=== PATIENT | female | born 1930 | race Caucasian/White ===

== ENCOUNTER → 2017-07-22 | Outpatient (CLI) | payer MEDICARE, OTHER ==
[~2017-07-22] MED LIST: AMLO5TAB2 PO; ASPI-983 PO; CALC1TAB29 PO; CEFD300C3 PO; FA/M1TAB29 PO; GFCD10B PO; METO-370 PO; OSEL30CA PO; SIMV40TA4 PO
--- NOTE | 2017-07-22 09:47 | Diagnostic Imaging Report ---
INDICATION: Followup pneumonia COMPARISON: 06/25/2017 FINDINGS: Two views of the chest were obtained. Heart size is normal. The pulmonary vessels appear unremarkable. There is no pneumothorax, mediastinal widening or pleural fluid. There are chronic findings of COPD. The lungs are now clear. Findings seen at the right lung base on the prior study have resolved. No new abnormality is seen. There is mild osteopenia of the osseous structures. IMPRESSION: 1. Interval resolution of the previously seen findings at the right lung base 2. Chronic findings of COPD are stable 3. No new or acute abnormality is seen compared to the prior exam. Dictated by: Dictated on workstation # [id number]
== END ==
LOC: RAD 09:05
PROVIDERS: ATTEND Internal Medicine
DX: J18.9 Pneumonia, unspecified organism (principal); J44.9 Chronic obstructive pulmonary disease, unspecified
CPT/HCPCS: 71046

== ENCOUNTER → 2017-09-10 | Outpatient (CLI) | payer MEDICARE, OTHER | LOC: CARD 12:47 | PROVIDERS: ATTEND Nurse Practitioner Family | DX: I10 Essential (primary) hypertension (principal); I47.1 Supraventricular tachycardia; I08.3 Combined rheumatic disorders of mitral, aortic and tricuspid valves | CPT/HCPCS: 93306 ==

== ENCOUNTER 2018-05-14 16:07 | Emergency (ER) | payer MEDICARE, OTHER ==
[~2018-05-14] VITALS: Ht 152.4 cm; Wt 53.1 kg
[~2018-05-14 16:07] MED LIST changes: -AMLO5TAB2 PO; +AMLO5TAB9 PO
[2018-05-14] MEDS ORDERED: ASPIRIN 81 MG CHEW (CHILDREN'S ASA) PO ONE (16:15)
[2018-05-14 16:34] LABS: BASOPHILS % (AUTO) 0 % (0-10); EOSINOPHILS # (AUTO) 0.2 10^3/uL (0.0-0.3); EOSINOPHILS % (AUTO) 2 % (0-10); HEMATOCRIT 43 % (35-52); HEMOGLOBIN 14.1 G/DL (11.5-16.0); LYMPHOCYTES # (AUTO) 2.2 X 10^3 (1.0-4.0); LYMPHOCYTES % (AUTO) 28 % (12-44); MEAN CORPUSCULAR HEMOGLOBIN 31 PG (25-34); MEAN CORPUSCULAR HGB CONC 33 G/DL (32-36); MEAN CORPUSCULAR VOLUME 92 FL (80-99); MEAN PLATELET VOLUME 9.9 FL (7.4-10.4); MONOCYTES # (AUTO) 0.7 X 10^3 (0.0-1.0); MONOCYTES % (AUTO) 9 % (0-12); NEUTROPHILS # (AUTO) 4.8 X 10^3 (1.8-7.8); NEUTROPHILS % (AUTO) 62 % (42-75); PLATELET COUNT 228 10^3/uL (130-400); RED CELL DISTRIBUTION WIDTH 12.8 % (10.0-14.5); WHITE BLOOD COUNT 7.9 10^3/uL (4.3-11.0)
[2018-05-14 16:40] LABS: PROTHROMBIN TIME PATIENT 13.4 SEC (12.2-14.7)
--- NOTE | 2018-05-14 16:44 | Diagnostic Imaging Report ---
INDICATION: Shortness of air. Atrial fibrillation. COMPARISON: 07/22/2017. FINDINGS: Single frontal view of the chest demonstrates mild cardiomegaly. Pulmonary vasculature, however, is within normal limits. The lungs are well aerated and clear. No large pleural effusion or pneumothorax is seen. The visualized osseous structures show no acute abnormalities. IMPRESSION: 1. Mild cardiomegaly, but no evidence of failure or focal infiltrate. Dictated by: Dictated on workstation # [id number]
[2018-05-14 16:47] LABS: ALANINE AMINOTRANSFERASE 16 U/L (0-55); ALBUMIN 4.3 GM/DL (3.2-4.5); ALKALINE PHOSPHATASE 72 U/L (40-136); BILIRUBIN,TOTAL 1.6 MG/DL (0.1-1.0); BUN/CREATININE RATIO 18; CALCIUM 9.6 MG/DL (8.5-10.1); CARBON DIOXIDE 24 MMOL/L (21-32); CHLORIDE 102 MMOL/L (98-107); CREATININE SERUM 1.09 MG/DL (0.60-1.30); GFR ESTIMATED 47; GLUCOSE 98 MG/DL (70-105); MAGNESIUM 2.2 MG/DL (1.8-2.4); SODIUM 136 MMOL/L (135-145); TOTAL PROTEIN 7.1 GM/DL (6.4-8.2)
--- OUTSIDE RECORDS SUMMARY | 2018-05-14 16:51 | XMS REPORT | Continuity of Care Document ---
Author Author [facility] Organization [facility] Address Unknown Phone Unavailable Allergies Active Description Code Type Severity Reaction Onset Reported/Identified Relationship to Patient Clinical Status Yes MYCIN MYCIN Mild N /A 06/07/2005 Yes NKANo Known Allergies NKA Miscellaneous Allergy Unknown N/A 06/07/2005 Medications There is no data. Problems Date Dx Coded Attending Type Code Diagnosis Diagnosed By 06/26/2017 BEVERLY JOHNSON MD, Ot E86.0 DEHYDRATION 06/26/2017 BEVERLY JOHNSON MD Ot E87.1 HYPO-OSMOLALITY AND HYPONATREMIA 06/26/2017 BEVERLY JOHNSON MD Ot I10 ESSENTIAL (PRIMARY) HYPERTENSION 06/26/2017 BEVERLY JOHNSON MD Ot J10.00 FLU DUE TO OTH IDENT FLU VIRUS W UNSP TY 06/26/2017 BEVERLY JOHNSON MD Ot J18.9 PNEUMONIA, UNSPECIFIED ORGANISM 06/26/2017 BEVERLY JOHNSON MD Ot M19.91 PRIMARY OSTEOARTHRITIS, UNSPECIFIED SITE 06/26/2017 BEVERLY JOHNSON MD Ot M81.0 AGE-RELATED OSTEOPOROSIS W/O CURRENT PAT 06/26/2017 BEVERLY JOHNSON MD Ot N17.9 ACUTE KIDNEY FAILURE, UNSPECIFIED 06/26/2017 BEVERLY JOHNSON MD Ot R19.7 DIARRHEA, UNSPECIFIED 06/26/2017 BEVERLY JOHNSON MD Ot R74.8 ABNORMAL LEVELS OF OTHER SERUM ENZYMES 06/27/2017 BEVERLY JOHNSON MD Ot E86.0 DEHYDRATION 06/27/2017 BEVERLY JOHNSON MD Ot E87.1 HYPO-OSMOLALITY AND HYPONATREMIA 06/27/2017 BEVERLY JOHNSON MD Ot I10 ESSENTIAL (PRIMARY) HYPERTENSION 06/27/2017 BEVERLY JOHNSON MD Ot J10.00 FLU DUE TO OTH IDENT FLU VIRUS W UNSP TY 06/27/2017 BEVERLY JOHNSON MD Ot J18.9 PNEUMONIA, UNSPECIFIED ORGANISM 06/27/2017 BEVERLY JOHNSON MD Ot M19.91 PRIMARY OSTEOARTHRITIS, UNSPECIFIED SITE 06/27/2017 BEVERLY JOHNSON MD Ot M81.0 AGE-RELATED OSTEOPOROSIS W/O CURRENT PAT 06/27/2017 BEVERLY JOHNSON MD Ot N17.9 ACUTE KIDNEY FAILURE, UNSPECIFIED 06/27/2017 BEVERLY JOHNSON MD Ot R19.7 DIARRHEA, UNSPECIFIED 06/27/2017 BEVERLY JOHNSON MD Ot R74.8 ABNORMAL LEVELS OF OTHER SERUM ENZYMES 06/27/2017 BEVERLY JOHNSON MD Ot E86.0 DEHYDRATION 06/27/2017 BEVERLY JOHNSON MD Ot E87.1 HYPO-OSMOLALITY AND HYPONATREMIA 06/27/2017 BEVERLY JOHNSON MD Ot I10 ESSENTIAL (PRIMARY) HYPERTENSION 06/27/2017 BEVERLY JOHNSON MD Ot J10.00 FLU DUE TO OTH IDENT FLU VIRUS W UNSP TY 06/27/2017 BEVERLY JOHNSON MD Ot J18.9 PNEUMONIA, UNSPECIFIED ORGANISM 06/27/2017 BEVERLY JOHNSON MD Ot M19.91 PRIMARY OSTEOARTHRITIS, UNSPECIFIED SITE 06/27/2017 BEVERLY JOHNSON MD Ot M81.0 AGE-RELATED OSTEOPOROSIS W/O CURRENT PAT 06/27/2017 BEVERLY JOHNSON MD Ot N17.9 ACUTE KIDNEY FAILURE, UNSPECIFIED 06/27/2017 BEVERLY JOHNSON MD Ot R19.7 DIARRHEA, UNSPECIFIED 06/27/2017 BEVERLY JOHNSON MD Ot R74.8 ABNORMAL LEVELS OF OTHER SERUM ENZYMES 07/23/2017 FRANCESCA DILLARD MD Ot J18.9 PNEUMONIA, UNSPECIFIED ORGANISM 07/23/2017 FRANCESCA DILLARD MD Ot J44.9 CHRONIC OBSTRUCTIVE PULMONARY DISEASE, U 08/12/2017 FARNCESCA DILLARD MD Ot J18.9 PNEUMONIA, UNSPECIFIED ORGANISM 08/12/2017 FRANCESCA DILLARD MD Ot J44.9 CHRONIC OBSTRUCTIVE PULMONARY DISEASE, U 09/01/2017 FRANCESCA DILLARD MD Ot J18.9 PNEUMONIA, UNSPECIFIED ORGANISM 09/01/2017 FRANCESCA DILLARD MD Ot J44.9 CHRONIC OBSTRUCTIVE PULMONARY DISEASE, U 09/11/2017 DANNY DIAZ [employer]ITE [employer]ROSION PROOFER Ot I08.3 COMB RHEUMATIC DISORD OF MITRAL, AORTIC 09/11/2017 BAIMADANNY L WHITE MET[employer] CORROSION PROOFER Ot I10 ESSENTIAL (PRIMARY) HYPERTENSION 09/11/2017 BAIMADANNY L [employer] PROOFER Ot I47.1 SUPRAVENTRICULAR TACHYCARDIA 09/16/2017 BAIMADANNY L [employer]ROSION PROOFER Ot I08.3 COMB RHEUMATIC DISORD OF MITRAL, AORTIC 09/16/2017 BAIMADANNY L WH[employer] CORROSION PROOFER Ot I10 ESSENTIAL (PRIMARY) HYPERTENSION 09/16/2017 BAIMADANNY L WH[employer] CORROSION PROOFER Ot I47.1 SUPRAVENTRICULAR TACHYCARDIA 09/30/2017 BAIMA, DANNY L WH[employer]ROSION PROOFER Ot I08.3 COMB RHEUMATIC DISORD OF MITRAL, AORTIC 09/30/2017 BAIMA, DANNY L WH[employer] CORROSION PROOFER Ot I10 ESSENTIAL (PRIMARY) HYPERTENSION 09/30/2017 BAIMADANNY L WH[employer] MET[employer] CORROSION PROOFER Ot I47.1 SUPRAVENTRICULAR TACHYCARDIA 10/24/2017 BAIMADANNY L WHITE MET[employer] CORROSION PROOFER Ot I08.3 COMB RHEUMATIC DISORD OF MITRAL, AORTIC 10/24/2017 BAIMADELIODANNY L WHITE METAL CORROSION PROOFER Ot I10 ESSENTIAL (PRIMARY) HYPERTENSION 10/24/2017 BAIMADANNY L [employer]ROSION PROOFER Ot I47.1 SUPRAVENTRICULAR TACHYCARDIA 05/14/2018 GILMA NAPOLES, FRANCESCA Jon Ot 782.3 EDEMA 05/14/2018 FRANCESCA DILLARD MD Ot 785.1 PALPITATIONS 05/14/2018 ANICETO NAPOLES FACC, ALI FACP CCDS Ot 272.4 HYPERLIPIDEMIA NEC/NOS 05/14/2018 ANICETO NAPOLES FACC, ALI FACP CCDS Ot 276.9 ELECTROLYT/FLUID DIS NEC 05/14/2018 ANICETO NAPOLES FACC, ALI FACP CCDS Ot 401.9 HYPERTENSION NOS 05/14/2018 ANICETO NAPOLES FACC, ALI FACP CCDS Ot 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 05/14/2018 ANICETO NAPOLES FACC, ALI FACP CCDS Ot 729.81 SWELLING OF LIMB 05/14/2018 ANICETO NAPOLES FACC, ALI FACP CCDS Ot 272.4 HYPERLIPIDEMIA NEC/NOS 05/14/2018 ANICETO NAPOLES FACC, ALI FACP CCDS Ot 401.9 HYPERTENSION NOS 05/14/2018 ANICETO NAPOLES FACC, ALI FACP CCDS Ot 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 05/14/2018 ANICETO NAPOLES FACC, ALI FACP CCDS Ot 427.69 PREMATURE BEATS NEC 05/14/2018 ANICETO MD FACC, ALI FACP CCDS Ot 729.81 SWELLING OF LIMB 05/14/2018 ANICETO NAPOLES [facility], ALI FACP CCDS Ot 272.4 HYPERLIPIDEMIA NEC/NOS 05/14/2018 ANICETO NAPOLES [facility], ALI FACP CCDS Ot 401.9 HYPERTENSION NOS 05/14/2018 ANICETO NAPOLES FAC, ALI FACP CCDS Ot 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 05/14/2018 ANICETO NAPOLES [facility], ALI FACP CCDS Ot 427.69 PREMATURE BEATS NEC 05/14/2018 ANICETO NAPOLES FACC, ALI FACP CCDS Ot 729.81 SWELLING OF LIMB 05/14/2018 FRANCESCA DILLARD MD Ot J18.9 PNEUMONIA, UNSPECIFIED ORGANISM 05/14/2018 FRANCESCA DILLARD MD Ot J44.9 CHRONIC OBSTRUCTIVE PULMONARY DISEASE, U 05/14/2018 DANNY DIAZ WHITE MET[employer] CORROSION PROOFER Ot I08.3 COMB RHEUMATIC DISORD OF MITRAL, AORTIC 05/14/2018 DANNY DIAZ WHITE MET[employer] CORROSION PROOFER Ot I10 ESSENTIAL (PRIMARY) HYPERTENSION 05/14/2018 DANNY DIAZ [employer]ROS[employer] PROOFER Ot I47.1 SUPRAVENTRICULAR TACHYCARDIA Procedures There is no data. Results Test Result Range Complete blood count (CBC) with automated white blood cell (WBC) differential - 06/24/17 13:25 Blood leukocytes automated count (number/volume) 8.4 10*3/uL 4.3-11.0 Blood erythrocytes automated count (number/volume) 4.34 10*6/uL 4.35-5.85 Venous blood hemoglobin measurement (mass/volume) 13.4 g/dL 11.5-16.0 Blood hematocrit (volume fraction) 38 % 35-52 Automated erythrocyte mean corpuscular volume 88 [foz_us] 80-99 Automated erythrocyte mean corpuscular hemoglobin (mass per erythrocyte) 31 pg 25-34 Automated erythrocyte mean corpuscular hemoglobin concentration measurement ( mass/volume) 35 g/dL 32-36 Automated erythrocyte distribution width ratio 13.1 % 10.0-14.5 Automated blood platelet count (count/volume) 155 10*3/uL 130-400 Automated blood platelet mean volume measurement 10.2 [foz_us] 7.4-10.4 Automated blood neutrophils/100 leukocytes 80 % 42-75 Automated blood lymphocytes/100 leukocytes 14 % 12-44 Blood monocytes/100 leukocytes 6 % 0-12 Automated blood eosinophils/100 leukocytes 0 % 0-10 Automated blood basophils/100 leukocytes 0 % 0-10 Blood neutrophils automated count (number/volume) 6.7 10*3 1.8-7.8 Blood lymphocytes automated count (number/volume) 1.2 10*3 1.0-4.0 Blood monocytes automated count (number/volume) 0.5 10*3 0.0-1.0 Automated eosinophil count 0.0 10*3/uL 0.0-0.3 Automated blood basophil count (count/volume) 0.0 10*3/uL 0.0-0.1 Comprehensive metabolic panel - 06/24/17 13:25 Serum or plasma sodium measurement (moles/volume) 131 mmol/L 135-145 Serum or plasma potassium measurement (moles/volume) 3.3 mmol/L 3.6-5.0 Serum or plasma chloride measurement (moles/volume) 97 mmol/L 98-107 Carbon dioxide 23 mmol/L 21-32 Serum or plasma anion gap determination (moles/volume) 11 mmol/L 5-14 Serum or plasma urea nitrogen measurement (mass/volume) 32 mg/dL 7-18 Serum or plasma creatinine measurement (mass/volume) 1.54 mg/dL 0.60-1.30 Serum or plasma urea nitrogen/creatinine mass ratio 21 NRG Serum or plasma creatinine measurement with calculation of estimated glomerular filtration rate 32 NRG Serum or plasma glucose measurement (mass/volume) 87 mg/dL 70-105 Serum or plasma calcium measurement (mass/volume) 8.7 mg/dL 8.5-10.1 Serum or plasma total bilirubin measurement (mass/volume) 1.1 mg/dL 0.1-1.0 Serum or plasma alkaline phosphatase measurement (enzymatic activity/volume) 85 U/L 40-136 Serum or plasma aspartate aminotransferase measurement (enzymatic activity/ volume) 248 U/L 5-34 Serum or plasma alanine aminotransferase measurement (enzymatic activity/volume ) 76 U/L 0-55 Serum or plasma protein measurement (mass/volume) 6.1 g/dL 6.4-8.2 Serum or plasma albumin measurement (mass/volume) 3.6 g/dL 3.2-4.5 Influenza virus A and B antigen detection - 06/24/17 14:35 CALL POSITIVES (F1 HELP) CALLED TO JANE AT [id number] NR FLU RESULT POSITIVE FOR INFLUENZA A ANTIGEN, NEG FOR B ANTIGEN, BY IA BANNER Blood lactic acid measurement (moles/volume) - 06/24/17 15:12 Blood lactic acid measurement (moles/volume) 1.49 mmol/L 0.50-2.00 Bacterial blood culture - 06/24/17 15:12 Bacterial blood culture [facility] Complete blood count (CBC) with automated white blood cell (WBC) differential - 06/24/17 15:23 Blood leukocytes automated count (number/volume) 8.7 10*3/uL 4.3-11.0 Blood erythrocytes automated count (number/volume) 4.31 10*6/uL 4.35-5.85 Venous blood hemoglobin measurement (mass/volume) 13.3 g/dL 11.5-16.0 Blood hematocrit (volume fraction) 38 % 35-52 Automated erythrocyte mean corpuscular volume 88 [foz_us] 80-99 Automated erythrocyte mean corpuscular hemoglobin (mass per erythrocyte) 31 pg 25-34 Automated erythrocyte mean corpuscular hemoglobin concentration measurement ( mass/volume) 35 g/dL 32-36 Automated erythrocyte distribution width ratio 13.3 % 10.0-14.5 Automated blood platelet count (count/volume) 149 10*3/uL 130-400 Automated blood platelet mean volume measurement 10.2 [foz_us] 7.4-10.4 Automated blood neutrophils/100 leukocytes 79 % 42-75 Automated blood lymphocytes/100 leukocytes 17 % 12-44 Blood monocytes/100 leukocytes 5 % 0-12 Automated blood eosinophils/100 leukocytes 0 % 0-10 Automated blood basophils/100 leukocytes 0 % 0-10 Blood neutrophils automated count (number/volume) 6.8 10*3 1.8-7.8 Blood lymphocytes automated count (number/volume) 1.4 10*3 1.0-4.0 Blood monocytes automated count (number/volume) 0.4 10*3 0.0-1.0 Automated eosinophil count 0.0 10*3/uL 0.0-0.3 Automated blood basophil count (count/volume) 0.0 10*3/uL 0.0-0.1 Comprehensive metabolic panel - 06/24/17 15:23 Serum or plasma sodium measurement (moles/volume) 130 mmol/L 135-145 Serum or plasma potassium measurement (moles/volume) 3.8 mmol/L 3.6-5.0 Serum or plasma chloride measurement (moles/volume) 99 mmol/L 98-107 Carbon dioxide 22 mmol/L 21-32 Serum or plasma anion gap determination (moles/volume) 9 mmol/L 5-14 Serum or plasma urea nitrogen measurement (mass/volume) 31 mg/dL 7-18 Serum or plasma creatinine measurement (mass/volume) 1.38 mg/dL 0.60-1.30 Serum or plasma urea nitrogen/creatinine mass ratio 22 NRG Serum or plasma creatinine measurement with calculation of estimated glomerular filtration rate 36 NRG Serum or plasma glucose measurement (mass/volume) 74 mg/dL 70-105 Serum or plasma calcium measurement (mass/volume) 8.8 mg/dL 8.5-10.1 Serum or plasma total bilirubin measurement (mass/volume) 1.1 mg/dL 0.1-1.0 Serum or plasma alkaline phosphatase measurement (enzymatic activity/volume) 83 U/L 40-136 Serum or plasma aspartate aminotransferase measurement (enzymatic activity/ volume) 240 U/L 5-34 Serum or plasma alanine aminotransferase measurement (enzymatic activity/volume ) 75 U/L 0-55 Serum or plasma protein measurement (mass/volume) 6.1 g/dL 6.4-8.2 Serum or plasma albumin measurement (mass/volume) 3.6 g/dL 3.2-4.5 Bacterial blood culture - 06/24/17 15:23 Bacterial blood culture NG NRG Sputum Gram stain - 06/24/17 15:44 GRAM STAIN SPUTUM AND MIXED BACTERIAL TAMRA NRG Bacterial sputum culture - 06/24/17 15:44 FREE TEXT EXTERNAL BETA LACTAMASE POSITIVE NRG QUANTITY OF GROWTH Scant Growth NR FREE TEXT ENTRY 2 PLUS NORMAL TAMRA NR Bacterial sputum culture [id number] BANNER Complete urinalysis with reflex to culture - 06/24/17 21:00 Urine color determination YELLOW NRG Urine clarity determination CLEAR NRG Urine pH measurement by test strip 5 5-9 Specific gravity of urine by test strip 1.020 1.016- 1.022 Urine protein assay by test strip, semi-quantitative 2+ NEGATIVE Urine glucose detection by automated test strip NEGATIVE NEGATIVE Erythrocytes detection in urine sediment by light microscopy 3+ NEGATIVE Urine ketones detection by automated test strip 1+ NEGATIVE Urine nitrite detection by test strip NEGATIVE NEGATIVE Urine total bilirubin detection by test strip NEGATIVE NEGATIVE Urine urobilinogen measurement by automated test strip (mass/volume) NORMAL NORMAL Urine leukocyte esterase detection by dipstick 1+ NEGATIVE Automated urine sediment erythrocyte count by microscopy (number/high power field) [HPF] NRG Automated urine sediment leukocyte count by microscopy (number/high power field ) [HPF] NRG Bacteria detection in urine sediment by light microscopy FEW NRG Squamous epithelial cells detection in urine sediment by light microscopy 5-10 NRG Crystals detection in urine sediment by light microscopy NONE NRG Casts detection in urine sediment by light microscopy PRESENT NRG Mucus detection in urine sediment by light microscopy MODERATE NRG Complete urinalysis with reflex to culture NO NRG Granular casts detection in urine sediment by light microscopy 5-10 NRG C DIFFICILE AG + TOXIN A/B. - 06/25/17 07:01 RESULTS NEGATIVE FOR ANTIGEN AND TOXIN A/B NRG Complete blood count (CBC) with automated white blood cell (WBC) differential - 06/26/17 05:53 Blood leukocytes automated count (number/volume) 3.6 10*3/uL 4.3-11.0 Blood erythrocytes automated count (number/volume) 3.81 10*6/uL 4.35-5.85 Venous blood hemoglobin measurement (mass/volume) 11.6 g/dL 11.5-16.0 Blood hematocrit (volume fraction) 34 % 35-52 Automated erythrocyte mean corpuscular volume 90 [foz_us] 80-99 Automated erythrocyte mean corpuscular hemoglobin (mass per erythrocyte) 30 pg 25-34 Automated erythrocyte mean corpuscular hemoglobin concentration measurement ( mass/volume) 34 g/dL 32-36 Automated erythrocyte distribution width ratio 13.1 % 10.0-14.5 Automated blood platelet count (count/volume) 129 10*3/uL 130-400 Automated blood platelet mean volume measurement 10.2 [foz_us] 7.4-10.4 Automated blood neutrophils/100 leukocytes 69 % 42-75 Automated blood lymphocytes/100 leukocytes 23 % 12-44 Blood monocytes/100 leukocytes 8 % 0-12 Automated blood eosinophils/100 leukocytes 0 % 0-10 Automated blood basophils/100 leukocytes 0 % 0-10 Blood neutrophils automated count (number/volume) 2.5 10*3 1.8-7.8 Blood lymphocytes automated count (number/volume) 0.8 10*3 1.0-4.0 Blood monocytes automated count (number/volume) 0.3 10*3 0.0-1.0 Automated eosinophil count 0.0 10*3/uL 0.0-0.3 Automated blood basophil count (count/volume) 0.0 10*3/uL 0.0-0.1 Comprehensive metabolic panel - 06/26/17 05:53 Serum or plasma sodium measurement (moles/volume) 139 mmol/L 135-145 Serum or plasma potassium measurement (moles/volume) 3.6 mmol/L 3.6-5.0 Serum or plasma chloride measurement (moles/volume) 110 mmol/L 98-107 Carbon dioxide 21 mmol/L 21-32 Serum or plasma anion gap determination (moles/volume) 8 mmol/L 5-14 Serum or plasma urea nitrogen measurement (mass/volume) 9 mg/dL 7-18 Serum or plasma creatinine measurement (mass/volume) 0.72 mg/dL 0.60-1.30 Serum or plasma urea nitrogen/creatinine mass ratio 13 NRG Serum or plasma creatinine measurement with calculation of estimated glomerular filtration rate > NRG Serum or plasma glucose measurement (mass/volume) 85 mg/dL 70-105 Serum or plasma calcium measurement (mass/volume) 8.2 mg/dL 8.5-10.1 Serum or plasma total bilirubin measurement (mass/volume) 0.7 mg/dL 0.1-1.0 Serum or plasma alkaline phosphatase measurement (enzymatic activity/volume) 60 U/L 40-136 Serum or plasma aspartate aminotransferase measurement (enzymatic activity/ volume) 111 U/L 5-34 Serum or plasma alanine aminotransferase measurement (enzymatic activity/volume ) 55 U/L 0-55 Serum or plasma protein measurement (mass/volume) 5.2 g/dL 6.4-8.2 Serum or plasma albumin measurement (mass/volume) 3.0 g/dL 3.2-4.5 Complete blood count (CBC) with automated white blood cell (WBC) differential - 05/14/18 16:18 Blood leukocytes automated count (number/volume) 7.9 10*3/uL 4.3-11.0 Blood erythrocytes automated count (number/volume) 4.62 10*6/uL 4.35-5.85 Venous blood hemoglobin measurement (mass/volume) 14.1 g/dL 11.5-16.0 Blood hematocrit (volume fraction) 43 % 35-52 Automated erythrocyte mean corpuscular volume 92 [foz_us] 80-99 Automated erythrocyte mean corpuscular hemoglobin (mass per erythrocyte) 31 pg 25-34 Automated erythrocyte mean corpuscular hemoglobin concentration measurement ( mass/volume) 33 g/dL 32-36 Automated erythrocyte distribution width ratio 12.8 % 10.0-14.5 Automated blood platelet count (count/volume) 228 10*3/uL 130-400 Automated blood platelet mean volume measurement 9.9 [foz_us] 7.4-10.4 Automated blood neutrophils/100 leukocytes 62 % 42-75 Automated blood lymphocytes/100 leukocytes 28 % 12-44 Blood monocytes/100 leukocytes 9 % 0-12 Automated blood eosinophils/100 leukocytes 2 % 0-10 Automated blood basophils/100 leukocytes 0 % 0-10 Blood neutrophils automated count (number/volume) 4.8 10*3 1.8-7.8 Blood lymphocytes automated count (number/volume) 2.2 10*3 1.0-4.0 Blood monocytes automated count (number/volume) 0.7 10*3 0.0-1.0 Automated eosinophil count 0.2 10*3/uL 0.0-0.3 Automated blood basophil count (count/volume) 0.0 10*3/uL 0.0-0.1 Encounters ACCT No. Visit Date/Time Discharge Status Pt. Type Provider Facility Loc./Unit Complaint [id number] 09/10/2017 12:47:00 09/10/2017 23:59:59 CLS Outpatient DANNY DIAZ [facility] CARD I10 HTN [id number] 07/22/2017 09:05:00 07/22/2017 23:59:59 CLS Outpatient FRANCESCA DILLARD MD [facility] RAD PNEUMONIA [id number] 06/25/2017 13:11:00 06/26/2017 13:06:00 DIS Inpatient BEVERLY JOHNSON MD [facility] 4TH FLU/DEHYDRATION [id number] 10/18/2016 10:45:00 10/18/2016 23:59:59 CLS Preadmit FRANCESCA DILLARD MD [facility] RAD SCREENING Z12.31 [id number] 07/22/2013 07:51:00 07/22/2013 23:59:59 CLS Outpatient ANICETO NAPOLES ELMA ADHIKARI FACP CCDS [facility] RAD HTN,HLP,PVC [id number] 07/19/2013 12:40:00 07/19/2013 23:59:59 CLS Outpatient ELMA MORELAND MD, FACC, FACP CCDS [facility] CARD HTN,HLP,PVC [id number] 06/11/2013 12:56:00 06/11/2013 23:59:59 CLS Outpatient ELMA MORELAND MD, FACC, FACP CCDS [facility] RAD LEG SWELLING [id number] 06/03/2013 09:59:00 06/03/2013 23:59:59 CLS Outpatient GILMA NAPOLES, FRANCESCA Jon [facility] CARD PALPITATIONS [id number] 05/14/2018 16:09:00 ACT Emergency CORAZON NAPOLES, DORINA L[place]ola [facility] ER ABNORMAL HEART RHYTHM
[2018-05-14 16:54] LABS: MYOGLOBIN SERUM 88.3 NG/ML (10.0-92.0)
--- NOTE | 2018-05-14 17:07 | NUR ---
UP ET AMBULATING TO BATHROOM.
--- NOTE | 2018-05-14 17:10 | NUR ---
DR CHANDRA NOTIFIED OF BP 177/115
--- NOTE | 2018-05-14 17:10 | ED Cardiac General ---
History of Present Illness General Chief Complaint: Cardiac/General Problems Stated Complaint: ABNORMAL HEART RHYTHM Nursing Triage Note: ARRIVED VIA AMB TO ROOM 06. STATES SHE WAS SEEN AT DR AARON OFFICE TODAY KRYSTALUAUSE SHE HAS BEEN FEELING SOA, TIRED, AND BLURRED VISION SINCE FRIDAY. SENT HERE FROM [facility] OFFICE BECAUSE THEY FOUND HER IN A NEW ONSET OF AFIB. Source: patient, family Exam Limitations: no limitations History of Present Illness Date Seen by Provider: May 14, 2018 Time Seen by Provider: 16:11 Initial Comments This 87-year-old woman presents to the emergency room with several days of feeling fatigued, short of air, and experiencing blurry vision and urinary frequency. She presented to Dr. Dillard's office today for evaluation. There she was found to have an irregular rhythm and was sent to the emergency room for further evaluation. On the monitor she is demonstrating sinus arrhythmia and frequent PACs. She denies any chest pain. She is anxious about these issues. Allergies and Home Medications Allergies Coded Allergies: No Known Allergies (Verified Allergy, Unknown, 06/07/05) Uncoded Allergies: MYCIN (Allergy, Mild, 06/07/05) Home Medications Amlodipine Besylate 5 Mg Tablet, 5 MG PO HS, (Reported) Aspirin 81 Mg Tablet.dr, 81 MG PO DAILY, (Reported) Calcium Carbonate/Vitamin D3 1 Each Tablet, 1 TAB PO DAILY, (Reported) Metoprolol Succinate 50 Mg Tab.er.24h, 50 MG PO DAILY, (Reported) Multivit-Min/FA/Lycopene/Lut 1 Each Tablet, 1 TAB PO DAILY, (Reported) Simvastatin 40 Mg Tablet, 40 MG PO 1200, (Reported) Patient Home Medication List Home Medication List Reviewed: Yes Review of Systems Review of Systems Constitutional: see HPI EENTM: No Symptoms Reported Respiratory: See HPI Cardiovascular: See HPI Gastrointestinal: No Symptoms Reported Genitourinary: See HPI Musculoskeletal: no symptoms reported Skin: no symptoms reported Psychiatric/Neurological: See HPI Endocrine: No Symptoms Reported Hematologic/Lymphatic: No Symptoms Reported Past Axlbxex-Uedrpy-Xpebvq Hx Past Med/Social Hx: Reviewed Nursing Past Med/Soc Hx Patient Social History Recent Foreign Travel: No Contact w/Someone Who Travel: No Recent Infectious Disease Expo: No Recent Hopitalizations: Yes Immunizations Up To Date PED Vaccines UTD: Yes Seasonal Allergies Seasonal Allergies: No (POSSIBLE-RUNNY NOSE AT TIMES) Past Medical History Surgeries: Yes Gallbladder Respiratory: No Cardiac: Yes Hypertension Neurological: No Genitourinary: No Gastrointestinal: No Musculoskeletal: Yes Osteoporosis, Arthritis Endocrine: No HEENT: No Loss of Vision: Denies Hearing Impairment: Denies Cancer: No Psychosocial: No Integumentary: No Blood Disorders: No Family Medical History Neoplasm 19 MOTHER (MELANOMA) Physical Exam Vital Signs Vital Signs - First Documented 05/14/18 16:10 Temp 98.0 Pulse 80 Resp 16 B/P (MAP) 200/112 (141) Pulse Ox 96 O2 Delivery Room Air Capillary Refill : Less Than 3 Seconds Height, Weight, BMI Height: 5'5.50" Weight: 117lbs. 3.0oz. [id number]; 20.0 BMI Method:Stated General Appearance: WD/WN, Anxious, Thin HEENT: PERRL/EOMI, Normal ENT Inspection Neck: Normal Inspection Respiratory: Lungs Clear, Normal Breath Sounds, No Accessory Muscle Use, No Respiratory Distress Cardiovascular: No Edema, No Murmur, Normal Peripheral Pulses, Irregularly Irregular Gastrointestinal: Normal Bowel Sounds, Non Tender, Soft Extremity: Normal Capillary Refill, Normal Inspection, Non Tender, No Calf Tenderness, No Pedal Edema, Other (Negative Servando) Neurologic/Psychiatric: Alert, Oriented x3, No Motor/Sensory Deficits, Normal Mood/Affect, relays draftsperson II-XII Norm as Tested Skin: Normal Color, Warm/Dry Progress/Results/Core Measures Results/Orders Lab Results Laboratory Tests Test 05/14/18 16:18 05/14/18 17:05 Range/Units White Blood Count 7.9 4.3-11.0 10^3/uL Red Blood Count 4.62 4.35-5.85 10^6/uL Hemoglobin 14.1 11.5-16.0 G/DL Hematocrit 43 35-52 % Mean Corpuscular Volume 92 80-99 FL Mean Corpuscular Hemoglobin 31 25-34 PG Mean Corpuscular Hemoglobin Concent 33 32-36 G/DL Red Cell Distribution Width 12.8 10.0-14.5 % Platelet Count 228 130-400 10^3/uL Mean Platelet Volume 9.9 7.4-10.4 FL Neutrophils (%) (Auto) 62 42-75 % Lymphocytes (%) (Auto) 28 12-44 % Monocytes (%) (Auto) 9 0-12 % Eosinophils (%) (Auto) 2 0-10 % Basophils (%) (Auto) 0 0-10 % Neutrophils # (Auto) 4.8 1.8-7.8 X 10^3 Lymphocytes # (Auto) 2.2 1.0-4.0 X 10^3 Monocytes # (Auto) 0.7 0.0-1.0 X 10^3 Eosinophils # (Auto) 0.2 0.0-0.3 10^3/uL Basophils # (Auto) 0.0 0.0-0.1 10^3/uL Prothrombin Time 13.4 12.2-14.7 SEC INR Comment 1.0 0.8-1.4 Activated Partial Thromboplast Time 28 24-35 SEC Sodium Level 136 135-145 MMOL/L Potassium Level 4.0 3.6-5.0 MMOL/L Chloride Level 102 98-107 MMOL/L Carbon Dioxide Level 24 21-32 MMOL/L Anion Gap 10 5-14 MMOL/L Blood Urea Nitrogen 20 H 7-18 MG/DL Creatinine 1.09 0.60-1.30 MG/DL Estimat Glomerular Filtration Rate 47 BUN/Creatinine Ratio 18 Glucose Level 98 70-105 MG/DL Calcium Level 9.6 8.5-10.1 MG/DL Corrected Calcium 9.4 8.5-10.1 MG/DL Magnesium Level 2.2 1.8-2.4 MG/DL Total Bilirubin 1.6 H 0.1-1.0 MG/DL Aspartate Amino Transf (AST/SGOT) 33 5-34 U/L Alanine Aminotransferase (ALT/SGPT) 16 0-55 U/L Alkaline Phosphatase 72 40-136 U/L Myoglobin 88.3 10.0-92.0 NG/ML Troponin I < 0.028 <0.028 NG/ML B-Type Natriuretic Peptide 332.4 H <100.0 PG/ML Total Protein 7.1 6.4-8.2 GM/DL Albumin 4.3 3.2-4.5 GM/DL TSH [place] Testing 2.51 0.35-4.94 UIU/ML Urine Color YELLOW Urine Clarity CLEAR Urine pH 6 5-9 Urine Specific Mcgrann 1.010 L 1.016-1.022 Urine Protein NEGATIVE NEGATIVE Urine Glucose (UA) NEGATIVE NEGATIVE Urine Ketones NEGATIVE NEGATIVE Urine Nitrite NEGATIVE NEGATIVE Urine Bilirubin NEGATIVE NEGATIVE Urine Urobilinogen NORMAL NORMAL MG/DL Urine Leukocyte Esterase 1+ H NEGATIVE Urine RBC (Auto) 1+ H NEGATIVE Urine RBC 0-2 /HPF Urine WBC RARE /HPF Urine Squamous Epithelial Cells 2-5 /HPF Urine Crystals NONE /LPF Urine Bacteria NEGATIVE /HPF Urine Casts NONE /LPF Urine Mucus NEGATIVE /LPF Urine Culture Indicated NO My Orders Orders - DORINA CHANDRA MD Ua Culture If Indicated (05/14/18 16:19) Thyroid Analyzer (05/14/18 16:19) Medications Given in ED Current Medications Medications Dose Ordered Sig/Marni Route Start Time Stop Time Status Last Admin Dose Admin Aspirin 324 mg ONCE ONCE PO 05/14/18 16:15 05/14/18 16:16 DC 05/14/18 16:32 324 MG Vital Signs/I&O 05/14/18 05/14/18 16:10 18:58 Temp 98.0 97.8 Pulse 80 77 Resp 16 16 B/P (MAP) 200/112 (141) 171/98 (122) Pulse Ox 96 95 O2 Delivery Room Air Room Air Blood Pressure Mean: 141 Progress Progress Note : Progress Note Workup was fairly unremarkable. The abnormal rhythm was discussed with Dr. Suarez. He did not feel that admission was necessary but close outpatient follow-up with a visit in the clinic tomorrow was encouraged. He suggested considering d-dimer to further evaluate the shortness of breath. The risks and benefits of d-dimer and the need for follow-up CT if positive were discussed with patient and her son. After considering risks and benefits, they declined the D-dimer test. Patient had no lower extremity symptoms of DVT and she had no risk factors such as recent surgery, travel, sedentary activity, or smoking. We also discussed potentially adding a rhythm control medication to help with the sinus arrhythmia and PACs. Since these medications could possibly make her fatigue worse, she prefers to wait and discuss this with Dr. Suarez further. She will call his office in the morning. Patient left feeling reassured about her unremarkable remarkable workup. had some significantly elevated blood pressures. This was waxing and waning. Patient minute to being anxious and feels her blood pressures may be adversely affected by the anxiety of the emergency room. She plans to ask Dr. Suarez to address her blood pressure tomorrow. Initial ECG Impression Date: May 14, 2018 Initial ECG Impression Time: 16:15 Initial ECG Rate: 96 Initial ECG Rhythm: Normal Sinus Initial ECG Intervals: Normal Initial ECG Impression: Normal Comment Normal sinus rhythm with no ST elevation or depression. No abnormal intervals or axis deviation. Diagnostic Imaging Diagonstic Imaging: Xray Plain Films/CT/US/NM/MRI: chest Comments Chest x-ray viewed by me and report reviewed. See report below: NAME: ADAM VITALE [facility] REC#: [id number] PT STATUS: REG ER : 1930 PHYSICIAN: FCO GIVENS APRN ADMIT DATE: 05/14/18/ER Draft Date of Exam:05/14/18 CHEST 1 VIEW, AP/PA ONLY INDICATION: Shortness of air. Atrial fibrillation. COMPARISON: 07/22/2017. FINDINGS: Single frontal view of the chest demonstrates mild cardiomegaly. Pulmonary vasculature, however, is within normal limits. The lungs are well aerated and clear. No large pleural effusion or pneumothorax is seen. The visualized osseous structures show no acute abnormalities. IMPRESSION: 1. Mild cardiomegaly, but no evidence of failure or focal infiltrate. Dictated on workstation # [id number] Dict: 05/14/18 1642 Trans: 05/14/18 1644 [id number] Interpreted by: NYASIA LOO MD Departure Impression Primary Impression: Wandering pacemaker Additional Impressions: Generalized weakness Fatigue Qualified Codes: R53.83 - Other fatigue Labile blood pressure Disposition: HOME, SELF-CARE Condition: Stable Departure-Patient Inst. Decision time for Depature: 18:50 Referrals: FRANCESCA DILLARD MD (PCP/Family) Primary Care Physician Patient Instructions: Sick Sinus Syndrome Add. Discharge Instructions: Continue your medications as previously prescribed. Follow-up with Dr. Suarez's office first thing tomorrow morning. Please call them when they open in the morning. Dr. Suarez would be happy to see you in the clinic tomorrow. Discuss your blood pressure and your irregular heart rhythm at your appointment. Return to care if you develop chest pain, worsening shortness of breath, or other new or worsening symptoms. Follow-up with your primary care provider soon as possible. All discharge instructions reviewed with patient and/or family. Voiced understanding. Copy Copies To 1: FRANCESCA DILLARD MD Copies To 2: ELMA SUAREZ MD FACP FACC CCDS DORINA CHANDRA MD May 14, 2018 17:10
[2018-05-14 17:16] LABS: BILIRUBIN,URINE NEGATIVE (NEGATIVE); CLARITY,URINE CLEAR; COLOR,URINE YELLOW; GLUCOSE, URINE (UA) NEGATIVE (NEGATIVE); KETONES,URINE NEGATIVE (NEGATIVE); LEUKOCYTE ESTERASE ,URINE 1+ (NEGATIVE); NITRITE,URINE NEGATIVE (NEGATIVE); PH,URINE 6 (5-9); PROTEIN,URINE NEGATIVE (NEGATIVE); UROBILINOGEN,URINE NORMAL (NORMAL)
[2018-05-14 17:32] LABS: BACTERIA,URINE NEGATIVE /HPF; RBC,URINE 0-2 /HPF; WBC,URINE RARE /HPF
--- NOTE | 2018-05-14 18:19 | NUR ---
RESTING IN BED ET DENIES NEEDS AT THIS TIME.
[2018-05-14 18:58] VITALS: BP 171/98
== END 2018-05-14 19:02 | disposition home or self-care (01) ==
LOC: EDUNIT# 16:07 → ER 16:09
DX: R53.83 Other fatigue (principal); R42 Dizziness and giddiness; I10 Essential (primary) hypertension; M81.0 Age-related osteoporosis without current pathological fracture; Z82.49 Family history of ischemic heart disease and other diseases of the circulatory system; Z79.82 Long term (current) use of aspirin; Z98.890 Other specified postprocedural states; Z85.820 Personal history of malignant melanoma of skin; Z95.0 Presence of cardiac pacemaker
CPT/HCPCS: 36415; 71045; 80053; 81000; 83735; 83874; 83880; 84443; 84484; 85025; 85610; 85730; 93005; 93041

== ENCOUNTER → 2018-05-18 | Outpatient (CLI) | payer MEDICARE, OTHER | LOC: CARD 10:25 | PROVIDERS: ATTEND Internal Medicine Cardiovascular Disease | DX: R06.02 Shortness of breath (principal); I47.1 Supraventricular tachycardia; I49.5 Sick sinus syndrome | CPT/HCPCS: 93225; 93226 ==

== ENCOUNTER → 2018-05-19 | Outpatient (CLI) | payer MEDICARE, OTHER ==
[~2018-05-19] MED LIST changes: +CATHETER FLUSH 10 ML SYR IV PRN; +REGADENOSON 0.4 MG/5 ML SYR (LEXISCAN) IV ONE
[2018-05-19 13:13] VITALS: BP 136/89
[2018-05-19 13:14] VITALS: BP 125/73
--- NOTE | 2018-05-20 13:39 | STRESS TEST ---
DATE OF SERVICE: 05/19/2018 RESTING AND POST REGADENOSON TECHNETIUM-99M TETROFOSMIN SPECT CT IMAGING ORDERING PHYSICIAN: Dr. Suarez. PRIMARY PHYSICIAN: Dr. Perry. CLINICAL DIAGNOSIS: Shortness of breath. Baseline images were carried out after injection of 10.85 mCi of technetium-99m Tetrofosmin. This was followed by 0.4 mg regadenoson and 30.7 mCi of technetium-99m Tetrofosmin for a stress imaging. The electrocardiogram showed sinus rhythm with brief episodes of multifocal atrial tachycardia and with frequent atrial ectopy. The electrocardiogram did not change significantly with regadenoson infusion. The patient tolerated the procedure well. Review of images at rest and following stress does not indicate any significant perfusion defects consistent with significant myocardial ischemia or infarction. Gated images show normal global left ventricular systolic function and normal regional wall motion. Left ventricular ejection fraction is calculated to be 54%. Left ventricular end diastolic volume is 40 mL. TID is absent (0.93). CONCLUSIONS: 1. No evidence of any significant myocardial ischemia or infarction on this study. 2. Normal regional wall motion. 3. Normal global left ventricular systolic function with a calculated ejection fraction of 54%. Job ID: [id number] DocumentID: [id number] Dictated Date: 05/20/2018 13:18:30 Ammonium Nitrate Neutralizer Date: 05/20/2018 13:38:55 Dictated By: ELMA SUAREZ MD, MA, FACP, FACC,
== END ==
LOC: CARD 11:24
PROVIDERS: ATTEND Internal Medicine Cardiovascular Disease
DX: I47.1 Supraventricular tachycardia (principal); R06.02 Shortness of breath; I49.5 Sick sinus syndrome
CPT/HCPCS: 78452; 93017

== ENCOUNTER → 2018-06-29 | Outpatient (CLI) | payer MEDICARE, OTHER ==
[~2018-06-29] MED LIST changes: -CATHETER FLUSH 10 ML SYR IV PRN; -REGADENOSON 0.4 MG/5 ML SYR (LEXISCAN) IV ONE; +RT-ALBUTEROL SULF 2.5 MG/3 ML PRE-MIX VIAL INH ONE; +RT-ALBUTEROL SULF 2.5 MG/3 ML PRE-MIX VIAL ONE
== END ==
LOC: RT 09:32
PROVIDERS: ATTEND Internal Medicine
DX: R06.00 Dyspnea, unspecified (principal)
CPT/HCPCS: 94060; 94726; 94729

== ENCOUNTER 2019-01-13 05:32 | Outpatient (CLI) | payer MEDICARE, OTHER ==
[~2019-01-13] VITALS: Ht 160 cm; Wt 57.2 kg
[~2019-01-13 05:32] MED LIST changes: -RT-ALBUTEROL SULF 2.5 MG/3 ML PRE-MIX VIAL INH ONE; -RT-ALBUTEROL SULF 2.5 MG/3 ML PRE-MIX VIAL ONE
[2019-01-13] MEDS ORDERED: TIOT4MIS2 IH (14:15)
[2019-01-13] MEDS ORDERED: METO100T6 PO (14:15)
[2019-01-13] MEDS ORDERED: APIX2.5T PO (14:15)
== END 2019-01-13 14:24 | disposition home or self-care (01) ==
LOC: PREOP 05:32
PROVIDERS: ATTEND Specialist
DX: Z01.818 Encounter for other preprocedural examination (principal)

== ENCOUNTER 2019-01-15 05:58 | Day surgery (SDC) | payer MEDICARE, OTHER ==
[~2019-01-15] VITALS: Ht 152 cm; Wt 57.2 kg
[~2019-01-15 05:58] MED LIST changes: +APIX2.5T PO; +METO100T6 PO; +TIOT4MIS2 IH
[2019-01-15 06:09] VITALS: BP 197/100
[2019-01-15] MEDS ORDERED: POVIDONE (BETADINE) OPHTH SOLN 5% 30 ML OP ONE (06:15)
[2019-01-15] MEDS ORDERED: LIDOCAINE PF 1% 2 ML AMP IR PRN (06:15)
[2019-01-15] MEDS ORDERED: MOXIFLOXACIN OPHTH SOLN 5 MG/ML 0.3 ML SYRINGE OP ONE (06:15)
[2019-01-15] MEDS ORDERED: TIMOLOL MALEATE 0.5% 5 ML (TIMOPTIC) BTL OU PRN (06:15)
[2019-01-15] MEDS: TETRACAINE 0.5% OPHTH SOLN 4 ML BTL (SINGLE DOSE ONLY) OU PRN ×4 (06:20→06:43)
[2019-01-15] MEDS: CYCLOPENTOLATE 1% (CYCLOGYL) 2 ML DROPS OP SCH ×3 (06:33→06:43)
[2019-01-15] MEDS: PHENYLEPHRINE 10% OPHTH (NEO-SYN) 5 ML BTL OU SCH ×3 (06:33→06:43)
--- NOTE | 2019-01-15 06:53 | Ophthalmologist Pre-Op Note ---
Pre-Operative Progress Note H&P Reviewed The H&P was reviewed, patient examined and no changes noted. Date H&P Reviewed: Jan 15, 2019 Time H&P Reviewed: 06:52 Pre-Op Dx Cataract, Right Eye VENANCIO MELARA MD Jan 15, 2019 06:53
[2019-01-15] MEDS ORDERED: MIDAZOLAM 2 MG/2 ML (VERSED) VIAL ONE (06:58)
[2019-01-15] MEDS ORDERED: hydrALAZINE (APESOLINE) 20 MG/ML VIAL ONE (07:17)
--- NOTE | 2019-01-15 07:25 | Ophthalmology Operative Report ---
Cataract, Miotic Pupil PREOPERATIVE DIAGNOSIS: 1. Cataract Right Eye 2. Miotic Pupil POSTOPERATIVE DIAGNOSIS: 1. Cataract Right Eye 2. Miotic Pupil PROCEDURE: 1. Cataract removal and placement of posterior chamber implant, right eye 2. Pupillary expansion with malyugin ring SURGEON: Flash Melara ANESTHESIA: Topical with sedation COMPLICATIONS: None ESTIMATED BLOOD LOSS: Minimal DESCRIPTION OF PROCEDURE: After proper informed consent was obtained, the patient, a 88 female, was taken to the Operating Room and the right eye was anesthetized with Tetracaine. The eye was then prepped and draped in the usual manner. A wire lid speculum was placed. A paracentesis was made at the left hand position. Preservative free lidocaine was injected into anterior chamber followed by viscoelastic. A clear corneal incision was made in the temporal position. The malyugin ring was injected into the anterior chamber and the pupil was dilated. A capsulorrhexis was preformed and the central nuclear and cortical material were removed. The posterior capsule was polished and Kirill 24.5 AU00T0 IOL was placed into the capsular bag. The malyugin ring was removed. The residual viscoelastic was aspirated and the balanced saline solution was injected into the anterior chamber. Moxifloxacin was injected into the anterior chamber. The wound was checked and found to be water tight. The patient tolerated the procedure well without complications. FLASH MELARA MD Jan 15, 2019 07:25
[2019-01-15] MEDS ORDERED: acetaZOLAMIDE ER 500 MG CAP (DIAMOX SEQUELS) PO ONE (07:30)
[2019-01-15 07:37] VITALS: BP 184/91
--- NOTE | 2019-01-15 10:08 | Anesthesia-General Post-Op ---
MAC Patient Condition Mental Status/LOC: Same as Preop Cardiovascular: Satisfactory Nausea/Vomiting: Absent Respiratory: Satisfactory Pain: Controlled Complications: Absent Post Op Complications Complications None Follow Up Care/Instructions Patient Instructions None needed. Anesthesiology Discharge Order Discharge Order Patient is doing well, no complaints, stable vital signs, no apparent adverse anesthesia problems. No complications reported per nursing. JUD MAYA CRNA Jan 15, 2019 10:08
== END 2019-01-15 07:37 | disposition home or self-care (01) ==
LOC: SDC 05:58
PROVIDERS: ATTEND Specialist
DX: H25.11 Age-related nuclear cataract, right eye (principal); H57.03 Miosis; I48.91 Unspecified atrial fibrillation; I10 Essential (primary) hypertension; J44.9 Chronic obstructive pulmonary disease, unspecified; K21.9 Gastro-esophageal reflux disease without esophagitis; E78.00 Pure hypercholesterolemia, unspecified; M19.90 Unspecified osteoarthritis, unspecified site; Z88.1 Allergy status to other antibiotic agents; Z90.49 Acquired absence of other specified parts of digestive tract; Z79.899 Other long term (current) drug therapy; Z83.511 Family history of glaucoma

== ENCOUNTER 2019-01-26 05:39 | Outpatient (CLI) | payer MEDICARE, OTHER ==
[~2019-01-26] VITALS: Wt 57.2 kg
== END 2019-01-27 14:37 | disposition home or self-care (01) ==
LOC: PREOP 05:39
PROVIDERS: ATTEND Specialist
DX: Z01.818 Encounter for other preprocedural examination (principal)

== ENCOUNTER 2019-01-29 07:44 | Day surgery (SDC) | payer MEDICARE, OTHER ==
[~2019-01-29] VITALS: Ht 160 cm; Wt 57.2 kg
[2019-01-29] MEDS ORDERED: LIDOCAINE PF 1% 2 ML AMP IR PRN (07:45)
[2019-01-29] MEDS ORDERED: TIMOLOL MALEATE 0.5% 5 ML (TIMOPTIC) BTL OU PRN (07:45)
[2019-01-29] MEDS ORDERED: POVIDONE (BETADINE) OPHTH SOLN 5% 30 ML OP ONE (07:45)
[2019-01-29] MEDS ORDERED: MOXIFLOXACIN OPHTH SOLN 5 MG/ML 0.3 ML SYRINGE OP ONE (07:45)
[2019-01-29] MEDS: TETRACAINE 0.5% OPHTH SOLN 4 ML BTL (SINGLE DOSE ONLY) OU PRN ×4 (07:58→08:18)
[2019-01-29 08:00] VITALS: BP 162/86
[2019-01-29] MEDS: PHENYLEPHRINE 10% OPHTH (NEO-SYN) 5 ML BTL OU SCH ×3 (08:08→08:18)
[2019-01-29] MEDS: CYCLOPENTOLATE 1% (CYCLOGYL) 2 ML DROPS OP SCH ×3 (08:08→08:18)
[2019-01-29] MEDS ORDERED: acetaZOLAMIDE ER 500 MG CAP (DIAMOX SEQUELS) PO ONE (09:00)
--- NOTE | 2019-01-29 09:00 | Ophthalmologist Pre-Op Note ---
Pre-Operative Progress Note H&P Reviewed The H&P was reviewed, patient examined and no changes noted. Date H&P Reviewed: Jan 29, 2019 Time H&P Reviewed: 09:00 Pre-Op Dx Cataract, Left Eye VENANCIO MELARA MD Jan 29, 2019 09:00
[2019-01-29] MEDS ORDERED: MIDAZOLAM 2 MG/2 ML (VERSED) VIAL ONE (09:05)
--- NOTE | 2019-01-29 09:28 | Ophthalmology Operative Report ---
Cataract, Miotic Pupil PREOPERATIVE DIAGNOSIS: 1. Cataract Left Eye 2. Miotic Pupil POSTOPERATIVE DIAGNOSIS: 1. Cataract Left Eye 2. Miotic Pupil PROCEDURE: 1. Cataract removal and placement of posterior chamber implant, left eye 2. Pupillary expansion with malyugin ring SURGEON: Flash Melara ANESTHESIA: Topical with sedation COMPLICATIONS: None ESTIMATED BLOOD LOSS: Minimal DESCRIPTION OF PROCEDURE: After proper informed consent was obtained, the patient, a 88 female, was taken to the Operating Room and the left eye was anesthetized with Tetracaine. The eye was then prepped and draped in the usual manner. A wire lid speculum was placed. A paracentesis was made at the left hand position. Preservative free l idocaine was injected into anterior chamber followed by viscoelastic. A clear corneal incision was made in the temporal position. The malyugin ring was injected into the anterior chamber and the pupil was dilated. A capsulorrhexis was preformed and the central nuclear and cortical material were removed. The posterior capsule was polished and Kirill 24.5 AU00T0 IOL was placed into the capsular bag. The myalgian ring was removed. The residual viscoelastic was aspirated and the balanced saline solution was injected into the anterior chamber. Moxifloxacin was injected into the anterior chamber. The wound was checked and found to be water tight. The patient tolerated the procedure well without complications. [Limbal Relaxing Incision placed ] [ ]mm at [ ]. FLASH MELARA MD Jan 29, 2019 09:28
--- NOTE | 2019-01-29 09:30 | Anesthesia-General Post-Op ---
MAC Patient Condition Mental Status/LOC: Same as Preop Cardiovascular: Satisfactory Nausea/Vomiting: Absent Respiratory: Satisfactory Pain: Controlled Complications: Absent Post Op Complications Complications None Follow Up Care/Instructions Patient Instructions None needed. Anesthesiology Discharge Order Discharge Order Patient is doing well, no complaints, stable vital signs, no apparent adverse anesthesia problems. No complications reported per nursing. JOHANA UGARTE CRNA Jan 29, 2019 09:30
[2019-01-29 09:38] VITALS: BP 162/86
== END 2019-01-29 09:38 | disposition home or self-care (01) ==
LOC: SDC 07:44
PROVIDERS: ATTEND Specialist
DX: H25.12 Age-related nuclear cataract, left eye (principal); E78.00 Pure hypercholesterolemia, unspecified; M19.90 Unspecified osteoarthritis, unspecified site; J44.9 Chronic obstructive pulmonary disease, unspecified; I48.91 Unspecified atrial fibrillation; I10 Essential (primary) hypertension; Z83.511 Family history of glaucoma; Z90.49 Acquired absence of other specified parts of digestive tract; Z79.01 Long term (current) use of anticoagulants; Z79.899 Other long term (current) drug therapy; Z88.1 Allergy status to other antibiotic agents